=== PATIENT | male | born 1970 | race Caucasian/White ===

== ENCOUNTER 2016-08-28 08:30 | Emergency (ER) | payer OTHER ==
[2016-08-28 08:38] VITALS: TEMP 98; BMI 29.0
[2016-08-28] MEDS ORDERED: KETOROLAC TROMETHAMINE 30 MG/1 ML VIAL IVPUSH ONE (09:07)
[2016-08-28] MEDS ORDERED: KETOROLAC TROMETHAMINE 30 MG/1 ML VIAL ONE (09:09)
--- NOTE | 2016-08-28 09:14 | PDOC ---
Attending Attestation - Resident Resident Name: Dontae Mccarthy - ED Attending Attestation I have performed the following: I have examined & evaluated the patient, The case was reviewed & discussed with the resident, I agree w/resident's findings & plan, Exceptions are as noted - HPI HPI: 08/28/16 09:11 The patient is a 46 year old male with a significant past medical history of nephrolithiasis and ureterolithiasis, s/p "lazer lithotripsy" on Tuesday with Dr. Cain for left left ureterolithiasis, who presents with ongoing hematuria since the procedure and left flank pain for the past two days. He is taking an antibiotic twice daily. He is nausea No fever or chills No dysuria No vomiting - Physicial Exam PE: 08/28/16 09:16 He is well-appearing and in no acute distress Vitals noted Abdomen is soft and nontender 08/28/16 10:51 - Medical Decision Making 08/28/16 09:16 He is well-appearing and in no acute distress Will obtain labs Will obtain urinalysis and culture Will image with plain CT 08/28/16 10:29 The patient's pain has completely resolved CBC noted Chemistries, urinalysis, CT pending 08/28/16 10:[address] reading: There are three discreet areas of ureterolithiasis on the left side, with accompanying proximal hydroureter and hydronephrosis 1 area of ureterolithiasis measures 9 mm x 4mm He will require urological intervention We have been unable to reach his urologist We have left a message and are awaiting a return phone call 08/28/16 10:[address] result pending Awaiting return phone call from his urologist and from our urologist 08/28/16 10:[address] Stern He feels outpatient therapy is appropriate and can see him on Tuesday if needed The patient is pain free and wants to go home he is sure that he is taking an antibiotic twoce daily Will prescribe Percocet prn He will follow up with with his urologist on Tuesday and will return with any new symptoms He will have his PCP follow up the LFT abnormalities and understands that his PCP must follow up the studies done at our ED Clinical impression: Ureterolithiasis I discussed the physical exam findings, ancillary test results and final diagnoses with the patient. I answered all of the patient's questions. The patient was satisfied with the care received and felt comfortable with the discharge plan and treatment plan. The patient will call their primary care physician within 24 hours to arrange follow-up and will return to the Emergency Department with any new, persistent or worsening symptoms. 08/28/16 11:11 Discharge Disposition - Diagnosis Ureterolithiasis - Discharge Dispostion Disposition: HOME Condition at time of disposition: Improved - Prescriptions Prescriptions: Oxycodone HCl/Acetaminophen [Percocet 5-325 mg Tablet] 1 - 2 combo PO Q4H PRN # 20 tablet MDD 4 PRN Reason: Pain - Referrals Referrals: Aureliano Stern MD., [Staff Physician] - Call tomorrow - Patient Instructions Printed Discharge Instructions: DI for Kidney Stones Additional Instructions: It is extremely important that you see your urologist on Tuesday. If you cannot see your own urologist on Tuesday, please see the urologist to whom I referred you. It is extremely important that he continue to take the antibiotics prescribed by your urologist. If your urologist did not prescribe U antibiotics, you must return to the emergency department immediately as he require antibiotic treatment. Take Percocet rather than the pain medicine you were prescribed. Return to the emergency department immediately with ANY new, persistent or worsening symptoms. You MUST call and follow up with your doctor tomorrow. Please make sure your doctor reviews the results of your emergency department evaluation.
[2016-08-28] MEDS ORDERED: SODIUM CHLORIDE 1,000 ML IV STA (09:17)
--- NOTE | 2016-08-28 10:07 | PDOC ---
History of Present Illness - General Chief Complaint: Pain, Acute Stated Complaint: LEFT FLANK PAIN Time Seen by Provider: 08/28/16 08:32 History Source: Patient Exam Limitations: No Limitations - History of Present Illness Initial Comments: 46 y/o M with PMH of multiple L kidney stones presents to [facility] ER with c/o L flank pain. Pain started this morning and rated as an 8/10. Pt was seen by urologist in [place], [place] Dr. Cain ([phone]) on Tuesday08/25/16 for kidney stones in L kidney. At this time pt had lithotripsy for stone and since has had bloody urine but no pain. Pt does not remember if he had stent placed. Pt is not sure if he has passed a stone since lithotripsy. He had some nausea with pain today but did not vomit. He denies fevers, chills, light-headedness, dizziness, chest pain, sob, abd pain, generalized swelling, diarrhea, dysuria. Past History - Past Medical History Allergies/Adverse Reactions: Allergies Allergy/AdvReac Type Severity Reaction Status Date / Time No Known Allergies Allergy Verified 08/28/16 08:31 Home Medications: Ambulatory Orders Esomeprazole Mag Trihydrate [Nexium] 40 mg PO DAILY 07/13/11 Oxycodone HCl/Acetaminophen [Percocet 5-325 mg Tablet] 1 - 2 combo PO Q4H PRN # 20 tablet MDD 4 08/28/16 Other medical history: DENIES - Psycho/Social/Smoking Cessation Hx Anxiety: No Suicidal Ideation: No Smoking Status: No Smoking History: Never smoked Number of Cigarettes Smoked Daily: 0 Hx Alcohol Use: No Drug/Substance Use Hx: No Substance Use Type: None Review of Systems - Review of Systems Able to Perform ROS?: Yes Comments:: CONSTITUTIONAL: Absent: fever, no chills, no fatigue EYES: Absent: visual changes CARDIOVASCULAR: Absent: chest pain, no palpitations RESPIRATORY: Absent: cough, no SOB GI: +L abdominal pain, +nausea Absent: no vomiting, no constipation, no diarrhea GENITOURINARY: +hematuria Absent: no frequency, dysuria MUSCULOSKELETAL: Absent: back pain NEURO: Absent: headache *Physical Exam - Vital Signs Last Vital Signs Temp Pulse Resp BP Pulse Ox 98 F 73 18 144/106 98 08/28/16 08:31 08/28/16 08:31 08/28/16 08:31 08/28/16 08:31 08/28/16 08:31 - Physical Exam Comments: GENERAL: Well-appearing, well-nourished. NAD. HEENT: Normocephalic, atraumatic. EOM intact. CARDIOVASCULAR: Normal S1, S2. Regular rate and rhythm. PULMONARY: Clear to auscultation bilaterally. ABDOMEN: +L flank pain, no CVA tenderness. Soft, non-distended EXTREMITIES: Normal ROM in all four extremities. No gross deformities. SKIN: Warm, dry. NEUROLOGICAL: No focal neurological deficits. ED Treatment Course - LABORATORY CBC & Chemistry Diagram: 08/28/16 09:15 08/28/16 09:15 - Medications Given in the ED: ED Medications Discontinued Medications Generic Name Dose Route Start Last Admin Trade Name Freq PRN Reason Stop Dose Admin Ketorolac Tromethamine 30 mg 08/28/16 09:07 08/28/16 09:11 Toradol Injection - IVPUSH 08/28/16 09:08 30 mg ONCE ONE Administration Medical Decision Making - Medical Decision Making 08/28/16 9:25 Pt's pain likely secondary to nephrolithiasis Pt to be given toradol 30 mg IV for pain relief CBC, CMP, UA, CT abd/pelvis ordered 08/28/16 9:[address] Cain, pt's urologist in [place], [place] ([phone]). No answer on line today. 08/28/16 10:11 Pt's pain now relieved with toradol. Awaiting CT read. 08/28/16 10:35 Dr. Cain called again, message left with callback number to [facility]. Page also sent out to Dr. Guerin by nurse. Awaiting call back. 08/28/16 10:41 CT read of abd/pelvis impression: multiple small nonobstructing L renal stones measuring up to 7 mm. Mild to moderate left renal hydronephrosis with multiple small stones in the proximal and mid left ureter the largest in its midportion measuring 9 x 4 mm in craniocaudal transverse dimension. 08/28/16 11:15 Dr. Smith communicated with Dr. Stern who recommends pt f/u with his urologist and if unable to get appointment soon he should come see Dr. Stern on Tuesday, August 30. Pt given copy of CT results and percocet prescribed to him. He is also to continue using his antibiotics prescribed to him by his urologist. *DC/Admit/Observation/Transfer Diagnosis at time of Disposition: Ureterolithiasis - Discharge Dispostion Condition at time of disposition: Stable - Prescriptions Prescriptions: Oxycodone HCl/Acetaminophen [Percocet 5-325 mg Tablet] 1 - 2 combo PO Q4H PRN # 20 tablet MDD 4 PRN Reason: Pain - Referrals Referrals: Aureliano Stern MD., [Staff Physician] - Call tomorrow - Patient Instructions Printed Discharge Instructions: DI for Kidney Stones Additional Instructions: It is extremely important that you see your urologist on Tuesday. If you cannot see your own urologist on Tuesday, please see the urologist to whom I referred you. It is extremely important that he continue to take the antibiotics prescribed by your urologist. If your urologist did not prescribe U antibiotics, you must return to the emergency department immediately as he require antibiotic treatment. Take Percocet rather than the pain medicine you were prescribed. Return to the emergency department immediately with ANY new, persistent or worsening symptoms. You MUST call and follow up with your doctor tomorrow. Please make sure your doctor reviews the results of your emergency department evaluation.
[2016-08-28 10:13] LABS: MCH 27.6 pg (25.7-33.7); MEAN CELL VOLUME 80.6 fl (80-96); WHITE BLOOD COUNT 6.5 K/mm3 (4.0-10.8)
[2016-08-28 10:14] LABS: BASOPHIL 0.3 % (0-2.0); EOSINOPHIL 1.1 % (0-4.5); MCHC 34.2 g/dl (32.0-35.9); MEAN PLT VOLUME 9.1 fl (7.5-11.1); NEUTROPHILS 67.9 % (42.8-82.8); PLATELET COUNT 161 K/MM3 (134-434); RDW 12.7 % (11.9-15.9)
[2016-08-28 11:03] VITALS: BP 128/77; PULSE 79
[2016-08-28 11:06] LABS: CO2 27 mmol/L (22-28); COCKROFT - GAULT 115.9; CREATININE 1.1 mg/dl (0.6-1.3); GLUCOSE,RANDOM 105 mg/dl (74-106)
[2016-08-28 11:07] LABS: ALBUMIN 4.3 g/dl (3.5-5.0); ALK PHOS 67 U/L (32-92); BILIRUBIN,TOTAL 1.2 mg/dl (0.2-1.0); CALCIUM 9.1 mg/dl (8.4-10.2); SGOT/AST 58 U/L (10-42); SGPT/ALT 138 U/L (10-40); TOT PROT 7.2 g/dl (6.4-8.3)
[2016-08-28 11:08] LABS: ANION GAP 9 (8-16)
[2016-08-28 11:34] LABS: URINE APPEARANCE CLOUDY; URINE COLOR DK YELLOW
[2016-08-28 11:35] LABS: PH,URINE 5.5 (4.5-8); URINE BILIRUBIN NEGATIVE (NEGATIVE); URINE BLOOD 3+ (NEGATIVE); URINE GLUCOSE (UA) NEGATIVE (NEGATIVE); URINE KETONE NEGATIVE (NEGATIVE); URINE LEUK ESTERASE NEGATIVE (NEGATIVE); URINE NITRITE NEGATIVE (NEGATIVE); URINE PROTEIN 1+ (NEGATIVE); URINE UROBILINOGEN 0.2 E.U/dl (0.2-1.0)
[2016-08-28 12:18] LABS: URINE RBC >100 /hpf (0-3)
== END 2016-08-28 11:14 | disposition home or self-care (01) ==
LOC: FER 08:30
PROC: 3E0333Z Introduction of Anti-inflammatory into Peripheral Vein, Percutaneous Approach (ICD-10-PCS; principal; 2016-08-28)
PROC: 3E0337Z Introduction of Electrolytic and Water Balance Substance into Peripheral Vein, Percutaneous Approach (ICD-10-PCS; 2016-08-28)
DX: N20.1 Calculus of ureter (principal)
CPT/HCPCS: 36415; 74176-TC; 80053; 81003; 81015; 85025; 87086; 96361; 96374; 99283-25

== ENCOUNTER 2018-06-14 17:59 | Emergency (ER) | payer OTHER ==
--- NOTE | 2018-06-14 18:01 | PDOC ---
Attending Attestation - HPI HPI: 06/14/18 18:28 The patient is a 47 year old male, with a significant past medical history of multiple kidney stones, who presents to the ED complaining of bilateral ear pain. He notes that he noticed the discomfort today and decided to come to the ED for evaluation. He reports that his left ear discomfort is worse than his right ear. He denies sticking any foreign objects in his ear. The patient denies chest pain, shortness of breath, headache and dizziness. Denies fever, chills, nausea, vomiting, diarrhea or constipation. Allergies: None Past surgical history: None reported Social History: No alcohol, tobacco or drug use reported - Physicial Exam PE: 06/14/18 18:28 Constitutional: Awake, alert, oriented. No acute distress. Head: Normocephalic. Atraumatic Eyes: PERRL. EOMI. Conjunctivae are not pale. ENT: (+) Bilateral cerumen impaction, left worse than right. Mucous membranes are moist and intact. Posterior pharynx without exudates or erythema. Uvula midline. Neck: Supple. Full ROM. No lymphadenopathy. Cardiovascular: Regular rate. Regular rhythm. S1, S2 regular. Distal pulses are 2+ and symmetric. Pulmonary/Chest: No evidence of respiratory distress. Clear to auscultation bilaterally No wheezing, rales or rhonchi. <Deion Mcnamara - Last Filed: 06/14/18 18:27> - Resident Resident Name: Evette Dodge - ED Attending Attestation I have performed the following: I have examined & evaluated the patient, The case was reviewed & discussed with the resident, I agree w/resident's findings & plan, Exceptions are as noted - HPI HPI: 06/14/18 18:26 Bilateral ear pain, worse on the left since this morning. No fever/chills, URI symptoms, or trauma. - Physicial Exam PE: 06/14/18 18:26 Physical exam: Normal vital signs Bilateral cerumen impactions. Otherwise HEENT clear and lungs clear. - Medical Decision Making 06/14/18 18:26 Assessment: Bilateral cerumen impactions Plan: Ear irrigation by Dr. Dodge to loosen impactions. Further treatment depending on results. 06/14/18 19:02 ER irrigation was successful. All cerumen removed. TM clear. No canal inflammation. Follow-up ENT when necessary. Completely comfortable at discharge <Nato Callejas - Last Filed: 06/14/18 19:02>
[2018-06-14 18:10] VITALS: BP 143/98; PULSE 67; TEMP 97.5; BMI 25.7
--- NOTE | 2018-06-14 19:05 | PDOC ---
History of Present Illness - General Chief Complaint: Ear Problem Stated Complaint: EAR PAIN Time Seen by Provider: 06/14/18 18:01 - History of Present Illness Initial Comments: Mary Jackson is a 47yo otherwise healthy man who presents with a sensation of fullness in his bilateral ears. He states that he first started feeling the fullness after his shower today, and it feels like there is something in his ear. He does admit to using cotton swabs to clean his ears today. Mr Jackson denies any additional symptoms including hearing loss, ear pain, nasal congestion, sore throat, cough, or fever. Past History - Past Medical History Allergies/Adverse Reactions: Allergies Allergy/AdvReac Type Severity Reaction Status Date / Time No Known Allergies Allergy Verified 06/14/18 18:00 Home Medications: Ambulatory Orders NK [No Known Home Medication] 06/14/18 COPD: No - Suicide/Smoking/Psychosocial Hx Smoking Status: No Smoking History: Never smoked Have you smoked in the past 12 months: No Number of Cigarettes Smoked Daily: 0 Information on smoking cessation initiated: No 'Breaking Loose' booklet given: 08/28/16 Hx Alcohol Use: No Drug/Substance Use Hx: No Substance Use Type: None Review of Systems - Review of Systems Comments:: General: No fevers, no chills, no weight or appetite change, no malaise HEENT: No changes in vision, no changes in hearing, no congestion, no sore throat. +b/l ear fullness CV: No chest pain, no palpitations, no LE edema Pulm: No SOB, no cough, no wheezing GI: No nausea or vomiting, no change in bowel habits, no melena : No frequency, no urgency, no dysuria Musc: No back pain, no joint swelling, no recent injury Skin: No rash, no lesions, no erythema Endo: No excessive thirst, no heat/cold intolerance Heme: No unusual bruising or bleeding, no swollen glands Neuro: No syncope, no numbness/tingling, no focal weakness Vasc: No claudication Psych: No recent change in mood, no SI or HI *Physical Exam - Vital Signs Last Vital Signs Temp Pulse Resp BP Pulse Ox 97.5 F L 67 20 143/98 100 06/14/18 18:00 06/14/18 18:00 06/14/18 18:00 06/14/18 18:00 06/14/18 18:00 - Physical Exam Comments: General: Comfortable, no acute distress HEENT: PERRL, EOMI, MMM, voice normal, normal neck ROM. B/L cerumen impaction. Cards: RRR Pulm: Comfortable on room air Ext: ROM intact. Strength 5/5 and equal bilaterally Skin: Normal color, no rashes or lesions Neuro: A&Ox3, CN grossly intact, normal speech, motor/sensory grossly intact and symmetric Psych: Mood appropriate to situation Moderate Sedation - Procedure Monitoring Vital Signs: Procedure Monitoring Vital Signs Temperature 97.5 F L 06/14/18 18:00 Pulse Rate 67 06/14/18 18:00 Respiratory Rate 20 06/14/18 18:00 Blood Pressure 143/98 06/14/18 18:00 O2 Sat by Pulse Oximetry (%) 100 06/14/18 18:00 Medical Decision Making - Medical Decision Making 06/14/18 19:00 Mary Jackson is an otherwise healthy 47yo man who presented with bilateral cerumen impaction. - Irrigated ear canals bilaterally with hydrogen peroxide and water. Large pieces of cerumen removed from both ears. TM now visible bilaterally. - Discharge home with PMD follow up. Discussed with Dr Callejas. Evette Dodge PGY1 *DC/Admit/Observation/Transfer Diagnosis at time of Disposition: Impacted cerumen, bilateral - Discharge Dispostion Disposition: HOME Condition at time of disposition: Stable Decision to Admit order: No - Referrals Referrals: [facility] [place] [facility] [place] [Provider Group] - Patient Instructions Printed Discharge Instructions: DI for Cerumen Impaction Additional Instructions: Discharge Instructions: You were seen in the ER with cerumen (earwax) impacted in both your ears. This was removed with hydrogen peroxide. To prevent this from happening in the future , never put anything in your ears. There is no need to clean your ears at home. Make an appointment to follow up with your regular doctor within the next 1-2 weeks or if symptoms return. If you need to establish care, you have been referred to the medicine resident clinic at [facility]. Seek immediate medical care for any medical emergency including chest pain, shortness of breath, or focal neurological symptoms. - Post Discharge Activity
== END 2018-06-14 19:09 | disposition home or self-care (01) ==
LOC: FER 17:59
PROC: 3E1B78Z Irrigation of Ear using Irrigating Substance, Via Natural or Artificial Opening (ICD-10-PCS; principal; 2018-06-14)
PROC: 3E1B78Z Irrigation of Ear using Irrigating Substance, Via Natural or Artificial Opening (ICD-10-PCS; 2018-06-14)
DX: H61.23 Impacted cerumen, bilateral (principal)
CPT/HCPCS: 69209; 99282-25